=== PATIENT | female | born 1975 | race Caucasian/White ===

== ENCOUNTER → 2021-07-04 08:54 | Outpatient (CLI) | payer BC, SELFPAY ==
--- NOTE | ~2021-07-04 | MMUS_ITS ---
EXAMINATION: MM diagnostic mattie BI w shwetha, US axilla LT HISTORY: Left axillary swelling TECHNIQUE: Additional 3-D tomosynthesis images of the breasts were performed and synthetic 2-D images were generated. CAD analysis was submitted and interpreted. High resolution limited axillary ultraso und was performed. COMPARISON: 01/20/2020 BREAST PARENCHYMAL COMPOSITION: Breast composed of scattered areas of fibroglandular density FINDINGS: MAMMOGRAPHIC FINDINGS: There are no suspicious masses, calcifications or architectural distortion in either breast to sugges t malignancy. ULTRASOUND: Limited left axillary ultrasound: In the area of swelling there is a 1.9 cm lymph node with fatty hil um. No suspicious masses to suggest malignancy. IMPRESSION: 1. No evidence for malignancy in either breast. 2. Routine yearly screening mammogram and regular clinical breast examination are recommended. BI-RADS Category 2: Benign finding(s). Reviewed, dictated and finalized at location A. IMPRESSION: 1. No evidence for malignancy in either breast. 2. Routine yearly screening mammogram and regular clinical breast examination a re recommended. BI-RADS Category 2: Benign finding(s).
== END ==
PROVIDERS: PCP Internal Medicine; Visit Provider Nurse Practitioner
DX: M79.89 Other specified soft tissue disorders (principal)
CPT/HCPCS: 76882; 77062; 77066; G0279

== ENCOUNTER 2023-04-10 09:48 | Emergency (ER) | payer BC, SELFPAY ==
--- NOTE | ~2023-04-10 | CT_ITS ---
. EXAMINATION: CT abdomen pelvis w con DATE: 04/10/2023 12:44 INDICATION: Periumbilical and lower abdominal pain. History of hernia surgery. TECHNIQUE: Computed tomography (CT) of the abdomen and pelvis was performed with 100 CC Omnipaque 350 intravenous contrast. Automated exposure control and iterative reconstruction technique were employe d. Exam dose: 365.30 mGy-cm total exam DLP. COMPARISON: None. FINDINGS: Mild discoid atelectasis or scarring at the lung bases. Heart size is normal. No pericardia l or pleural effusion. Diffuse hepatic steatosis. No hepatic, splenic, pancreatic or adrenal space-occupying mass lesion. Th e gallbladder is present. No gallbladder wall thickening or pericholecystic fluid or fat stranding. N o bile duct or pancreatic duct dilatation. Approximately 2.5 mm lower pole right renal nonobstructing calculus. Several pinpoint nonobstructing lower pole left renal calculi. No ureteral calculus or hydroureteronephrosis. No renal space occupying mass lesion is detected. Normal caliber of the abdominal aorta. No intraperitoneal or retroperitoneal or pelvic mass lesion or adenopathy or ascites. The uterus, adnexal areas and urinary bladder are unremarkable. Approximately 5 cm wide area of anterior convexity of the ventral abdominal wall immediately cephalad to the small fat-containing umbilical hernia. There are transverse colon and a loop of small bowel p roject into this anterior bulging. No strangulation or obstruction. Normal appendix. Small sliding hiatal hernia. Diverticulosis of the colon; no CT evidence of diverticulitis. No bowel obstruction, bowel wall thick ening, pneumatosis or intraperitoneal free air is detected. Included skeletal structures are unremarkable. IMPRESSION: Approximately 5 cm wide anterior convexity of ventral abdominal wall immediately cephala d to small fat-containing umbilical hernia Diffuse hepatic steatosis Minimal bilateral nonobstructive nephrolithiasis Normal appendix Small sliding hernia Diverticulosis of the colon; no evidence of diverticulitis Reviewed, dictated and finalized at [facility]. Reviewed, dictated and finalized at location [facility]. STOR RELATIONS COORDINATOR IMPRESSION: Approximately 5 cm wide anterior convexity of ventral abdominal wa ll immediately cephalad to small fat-containing umbilical hernia Diffuse hepatic steatosis Minimal bilateral nonobstructive nephrolithiasis Normal appendix Small sliding hernia Diverticulosis of the colon; no evidence of diverticulitis
[2023-04-10 11:25] VITALS: BP 116/75; PULSE 72; RESP 17; TEMP 36.8; O2SAT 100
[2023-04-10 11:53] LABS: Basophils Absolute Auto 0.1 K/mm3 (0.0-0.1); Basophils Percent Auto 0.5 % (0.2-1.2); Eosinophils Absolute Auto 0.1 K/mm3 (0-0.3); Eosinophils Percent Auto 0.8 % (0-4.4); Hematocrit 44.7 % (37.0-47.0); Hemoglobin 14.4 g/dL (12.0-15.0); Immature Granulocyte Absolute 0.05 K/mm3 (0.00-0.031); Immature Granulocyte Percent A 0.5 % (0-0.5); Lymphocytes Absolute Auto 3.01 K/mm3 (0.9-3.2); Lymphocytes Percent Auto 29.5 % (18.3-44.2); Mean Corpuscular HGB Conc 32.2 g/dl (32-36); Mean Corpuscular Hemoglobin 30.6 pg (26-34); Mean Corpuscular Volume 95.1 fl (80-100); Mean Platelet Volume 10.2 fl (7.4-10.4); Monocytes Absolute Auto 0.7 K/mm3 (0.1-0.6); Monocytes Percent Auto 6.8 % (2.6-8.5); Neutrophils Absolute Auto 6.3 K/mm3 (1.3-6.7); Neutrophils Percent Auto 61.9 % (45.5-73.1); Platelet Count Result 307 k/mm3 (150-375); Red Cell Distribution Width 12.6 % (11.5-14.5); White Blood Count 10.2 K/mm3 (4.5-10.0)
[2023-04-10 11:57] LABS: Alanine Aminotransferase 47 U/L (6-35); Albumin Level 4.5 g/dL (3.5-5.1); Alkaline Phosphatase 86 U/L (38-126); Anion Gap 7 mmol/L (8-16); Aspartate Amino Transferase 46 U/L (14-36); Bilirubin,Total 0.6 mg/dL (0.2-1.3); Blood Urea Nitrogen 10 mg/dL (7-17); Calcium 9.9 mg/dL (8.4-10.2); Carbon Dioxide 28 mmol/L (22-30); Chloride 104 mmol/L (98-107); Estimated CRCL calculation 74 ml/min; Estimated Glomerular Filt Rate > 60; Glucose 99 mg/dL (65-110); Lipase 109 U/L (23-300); Potassium 4.1 mmol/L (3.4-5.0); Sodium 139 mmol/L (137-145)
[2023-04-10 12:15] LABS: Appearance Urine Clear (Clear); Bacteria Urine None Seen /hpf; Bilirubin Urine Negative (Negative); Blood Urine Negative (Negative); Color Urine Yellow (Yellow); Glucose Urine UA Negative (Negative); Ketones Urine Negative (Negative); Leukocyte Esterase Ur 1+ LEU/UL (Negative); Need Manual Microscopic Reviewed; Nitrate Urine Negative (Negative); Non Pathogenic Casts 0-2; Protein Urine Negative (Negative); Specific Grav Ur 1.011 (1.001-1.035); Squamous Epithelial Cell Urine None seen /hpf (Few); Urobilinogen Urine 0.2 mg/dL (<2.0); WBC Urine 0-5 /hpf; pH Urine 8.5 (5.0-9.0)
[2023-04-10 12:24] LABS: Add Urine Microscopic? YES
[2023-04-10] MEDS: ACETAMINOPHEN 500 MG TABLET 1000 MG PO (12:29)
--- NOTE | 2023-04-10 13:05 | ED.ABDPAIN ---
HPI - Abdominal Pain General Chief Complaint: Abdominal Pain Stated Complaint: hernia problems Time Seen by Provider: 04/10/23 10:57 Source: patient Mode of arrival: ambulatory Limitations: no limitations History of Present Illness HPI narrative: Patient is a 47 y/o female who presents to the ED with c/o periumbilical abdominal pain. Patient reports hx of umbilical hernia repair with mesh in January 2022 with a surgeon at [facility]. States over the last 1 year, she has had intermittent episodes of pain in her periumbilical region. States at times, her abdomen seems to become inflamed. She had a more severe episode of discomfort today and began feeling very ill which prompted her presentation. She has not taken anything for pain. Denies N/V, constipation, diarrhea, fevers, urinary trouble. Related Data Allergies Allergy/AdvReac Type Severity Reaction Status Date / Time aspirin Allergy Mild Hives / Verified 07/25/18 09:02 Red Face Penicillins Allergy Mild Hives / Verified 07/25/18 09:02 Red Face Review of Systems Review of Systems: CONSTITUTIONAL: Denies fever, chills, or sweats. CARDIOVASCULAR: Denies chest pain. RESPIRATORY: Denies dyspnea. GASTROINTESTINAL: See HPI. GENITOURINARY: Denies dysuria or hematuria. All systems reviewed & are unremarkable except as noted in HPI and below Exam Narrative: GENERAL: Well appearing, well-nourished, non-toxic, in no acute distress. HEAD: Normocephalic, atraumatic. RESPIRATORY: Airway patent, respirations nonlabored. Clear to auscultation bilaterally, no rales, rhonchi, wheezing. CARDIOVASCULAR: Regular rate and rhythm without murmurs, rubs, or gallops. ABDOMINAL: Soft, small umbilical hernia palpated on exam, mild tenderness to palpation diffusely throughout periumbilical region and just superior to umbilicus, nondistended. Normoactive BS. Chronic scarring to abdomen MUSCULOSKELETAL: Moves all extremities. No gross deformities. SKIN: Warm, dry, normal color. NEURO: A&O X3. Speech clear. Cranial nerves II-XII grossly intact. Steady gait. No ataxic movements. PSYCHIATRIC: Mildly anxious. Normal interaction. Course Vital Signs Vital signs: Vital Signs Temperature 98.3 F 04/10/23 11:25 Pulse Rate 72 04/10/23 11:25 Respiratory Rate 17 04/10/23 11:25 Blood Pressure 116/75 04/10/23 11:25 Pulse Oximetry 100 04/10/23 11:25 Temperature 98.4 F 04/10/23 14:14 Pulse Rate 72 04/10/23 14:14 Respiratory Rate 18 04/10/23 14:14 Blood Pressure 116/73 04/10/23 14:14 Pulse Oximetry 100 04/10/23 14:14 MDM - Abdominal Pain MDM Narrative Medical decision making narrative: Patient present ED with intermittent periumbilical abdominal pain over the last 1 year, history of umbilical hernia repair a couple of years ago. Vital signs stable upon arrival. Patient in no acute distress. Afebrile. Had not tried anything for pain prior to arrival. Given Tylenol in the ED with some improvement. Laboratory studies are unremarkable. Minimal leukocytosis 10.2. Stable H&H. Minimal transaminitis. UA without evidence for infection. CT abd/pelvis obtained and showing abnormal section/area of anterior bulging of abdominal wall just above hernia. Contains nonobstructed bowel. No obstruction and evidence of strangulation. No other significant abnormalities noted on CT scan, does show fatty liver changes. Patient updated on imaging results. She has remained stable throughout ED stay. Advised to continue tylenol/ibuprofen as needed for episodes of discomfort, also advised can place ice pack over hernia when inflamed. Recommended she have close f/u with her surgeon for further evaluation. Recommended she avoid straining/heavy lifting. Discussed signs and sx's of obstruction/strangulated hernia, reasons to return. Patient voiced understanding. D/C in stable condition. Medical Records Attestation: I reviewed the patient's medical records. Lab Data Attest
[2023-04-10 13:25] VITALS: BP 118/68; PULSE 68; RESP 15; O2SAT 100
[2023-04-10 14:14] VITALS: BP 116/73; PULSE 72; RESP 18; TEMP 36.9; O2SAT 100
== END 2023-04-10 14:15 | disposition home or self-care (01) ==
PROVIDERS: Emergency Provider Physician Assistant; PCP Internal Medicine
DX: R10.33 Periumbilical pain (principal); K42.9 Umbilical hernia without obstruction or gangrene
CPT/HCPCS: 36415; 74177; 80053; 81001; 81025; 83690; 85025; 99284; A9270; Q9967

== ENCOUNTER 2023-11-12 08:51 | Outpatient (CLI) | payer BC, SELFPAY ==
--- NOTE | ~2023-11-12 | DEXA_ITS ---
Bone Density Report Name: DARREN GUERRA Age: 48 Sex: Female Ethnicity: White Date of : 1975 Indication: postmenopausal; Referring Provider: TAMIR, LACY Study: Bone densitometry was performed. Exam Date: November 12, 2023 Accession number: [id number] Bone Density: Region BMD T-score Z-score Classification AP Spine(L1-L4) 0.976 -0.6 0.0 Normal Femoral Neck (Left) 0.661 -1.7 -1.1 Osteopenia Total Hip (Left) 0.874 -0.6 -0.2 Normal Femoral Neck (Right) 0.685 -1.5 -0.8 Osteopenia Total Hip (Right) 0.878 -0.5 -0.1 Normal Total Hip Mean 0.876 -0.6 -0.2 Normal World Health Organization criteria for BMD impression classify patients as: Normal (T-score at or above -1.0), Osteopenia (T-score between -1.0 and -2.5), or Osteoporosis (T-score at or below -2.5). 10-year Fracture Risk(1): Major Osteoporotic Fracture 4.3% Hip Fracture 0.4% Reported Risk Factors: [place] (), Neck BMD=0.661, BMI=26.0 (1) FRAX(R) Version 3.08. Fracture probability calculated for an untreated patient. Fracture probability may be lower if the patient has received treatment. Clinical Information Provided by Patient: Has used the following medications: Vitamin D, Calcium Patient maximum height was 64.0 Does not regularly consume dairy products Onset of menses at age 13 Number of children 2 Impression: The patient has low bone mass, based on the Left Femoral Neck T-score. The patient has an estimated ten-year risk of hip fracture of 0.4% and an estimated ten-year risk of major fracture of 4.3%, based on the WHO FRAX algorithm. Discussion: BONE DENSITY IS LOW AT ONE OR MORE SKELETAL SITES. This patient's lowest T-score is low at one or more skeletal sites. It meets the World Health Organization's (WHO) criteria for ?low bone mass? (T-score between -1.0 and -2.5). The patient's 10-year risk of fracture as calculated by FRAX is less than the threshold where pharmacological therapy is recommended by the National Osteoporosis Foundation (NOF). However, all treatment decisions require clinical judgment and consideration of individual patient factors, including patient preferences, comorbidities, previous drug use, risk factors not captured in the FRAX model (e.g., frailty, falls, vitamin D deficiency, increased bone turnover, interval significant decline in bone density) and possible under or overestimation of fracture risk by FRAX. The patient should follow a healthful lifestyle (good nutrition with adequate calcium and vitamin D, and appropriate weight-bearing exercise). Follow-Up: Consider repeating this study in 2 to 3 years to reassess this patient's status, or sooner if there is some new clinical indication. Reported by: TOI on 11/12/2023 9:23:00 AM.
== END 2023-11-12 08:52 | disposition home or self-care (01) ==
PROVIDERS: PCP Internal Medicine; Visit Provider Nurse Practitioner Women's Health
DX: Z78.0 Asymptomatic menopausal state (principal); M85.852 Other specified disorders of bone density and structure, left thigh; M85.851 Other specified disorders of bone density and structure, right thigh
CPT/HCPCS: 77080

== ENCOUNTER 2024-02-08 01:41 | Day surgery (SDC) | payer BC, SELFPAY ==
[2024-01-30 14:25] VITALS: BMI 26.6
[2024-02-08 08:40] VITALS: BP 112/59; PULSE 66; RESP 16; TEMP 36.1; O2SAT 100
[2024-02-08 08:47] LABS: BEDSIDEPREGUCG Negative (Negative)
[2024-02-08] MEDS: LACTATED RINGERS 1,000 ML 150 ML IV CONT (08:49)
--- NOTE | 2024-02-08 09:06 | P.PNAN_ITS ---
Anes - Initial Pre Proc Eval Procedure: Operation Date: 02/08/24 10:00 Proposed Procedures p Screening Colonoscopy - Timi Cowart MD Date/Time: 02/08/24 09:06 Surgeon: Timi Cowart MD Pre Op Diagnosis: Neoplasm Screening Patient Data Age: 48 Gender: F Height: 1.63 m Weight: 68.7 kg Last Vital Signs Temp 36.1 C L 02/08/24 08:40 Pulse 66 02/08/24 08:40 Resp 16 02/08/24 08:40 BP 112/59 L 02/08/24 08:40 Pulse Ox 100 02/08/24 08:40 O2 Del Method Room Air 02/08/24 08:40 Allergies Allergy/AdvReac Type Severity Reaction Status Date / Time aspirin Allergy Mild Hives / Verified 02/08/24 08:38 Red Face Penicillins Allergy Mild Hives / Verified 02/08/24 08:38 Red Face latex Allergy Rash Verified 02/08/24 08:38 tramadol AdvReac Blurry Verified 02/08/24 08:38 Vision Home Medications ?Medication ?Instructions ?Recorded ?Confirmed ?Type buspirone 5 mg tablet 5 mg PO BID 01/30/24 02/08/24 History magnesium glycinate 100 mg (as 250 mg PO DAILY 01/30/24 02/08/24 History glycinate) tablet metoprolol tartrate 25 mg tablet 25 mg PO BID 01/30/24 02/08/24 History Laboratory Tests 02/08/24 08:40 POC Urine HCG, Qual Negative (Negative) Patient hx anesthesia problems: none Family hx anesthesia problems: none Results Review: All pre-operative results and documents have been reviewed as part of the pre- operative evaluation. [facility] Past Medical History Medical History (Updated 02/08/24 @ 09:07 by Percy Barry MD) Anxiety Tachycardia Social History Social History Smoking status: Never smoker Substance use type: does not use Living arrangements: with family Spiritual care concerns: No Anes - Eval Final PreProcedure Day of Procedure 02/08/24 09:06 Patient weight: overweight Heart: regular rate and rhythm Lungs: clear to auscultation Airway: Mallampati scale class II Neurological: alert and oriented Last oral intake: >/= 8 hours ASA classification: II Emergent: no Anesthetic plan: proceed Anesthesia type and monitoring: general GIVS and standard monitoring Results Review: All pre-operative results and documents have been reviewed as part of the pre- operative evaluation. Informed Consent: The patient's anesthetic plan and its attendant risks and benefits were discussed with the patient/family/POA. Questions were solicited and answers provided to the satisfaction of the patient/family/POA.
--- NOTE | 2024-02-08 09:10 | PM.HPGS ---
History of Present Illness History of Present Illness Consent: Risks, benefits, and alternatives have been discussed and questions answered. Patient agrees to proceed with procedure. Chief complaint: Neoplasm Screening Narrative: Deonna Modi is a 48 year old female here for first screening colonoscopy Review of Systems Review of Systems: All systems reviewed & are unremarkable except as noted in HPI and below PMFSH Past Medical History Medical History (Updated 02/08/24 @ 09:20 by Timi Cowart MD) Colon cancer screening Anxiety Tachycardia Social History Social History Smoking status: Never smoker Substance use type: does not use Living arrangements: with family Spiritual care concerns: No Meds Home Medications and Allergies Home Medications ?Medication ?Instructions ?Recorded ?Confirmed ?Type buspirone 5 mg tablet 5 mg PO BID 01/30/24 02/08/24 History magnesium glycinate 100 mg (as 250 mg PO DAILY 01/30/24 02/08/24 History glycinate) tablet metoprolol tartrate 25 mg tablet 25 mg PO BID 01/30/24 02/08/24 History Allergies Allergy/AdvReac Type Severity Reaction Status Date / Time aspirin Allergy Mild Hives / Verified 02/08/24 08:38 Red Face Penicillins Allergy Mild Hives / Verified 02/08/24 08:38 Red Face latex Allergy Rash Verified 02/08/24 08:38 tramadol AdvReac Blurry Verified 02/08/24 08:38 Vision Vital Signs Vital Signs - 24 hr 02/08/24 08:40 Temperature 97.0 F L Pulse Rate 66 Respiratory Rate 16 Blood Pressure 112/59 L Pulse Oximetry 100 Oxygen Delivery Room Air Exam Const: General: comfortable and no acute distress HENMT: Face/Nose/Sinus: Normal nares present Eyes: General: appearance normal, both eyes and all related structures Neck: Neck: no JVD Resp: Auscultation: clear to auscultation bilaterally Cardio: Rate: regular rate Rhythm: regular rhythm GI: Inspection: non-distended GI Palp: Yes Soft to palpation Skin: General skin exam: normal color Neuro: General: gait normal Speech: normal speech Extrem: General: normal to inspection Psych: Mental Status: mental status grossly normal Assessment and Plan Assessment and plan (1) Colon cancer screening: Code(s): Z12.11 - Encounter for screening for malignant neoplasm of colon Status: Acute Assessment and Plan: colonoscopy
[2024-02-08 09:20] VITALS: BP 97/51; PULSE 69; RESP 16; O2SAT 95
[2024-02-08 09:30] VITALS: BP 96/44; PULSE 64; RESP 15; O2SAT 98
[2024-02-08 09:40] VITALS: BP 101/52; PULSE 65; RESP 16; O2SAT 96
== END 2024-02-08 09:56 | disposition home or self-care (01) ==
PROVIDERS: Anesthesiology; PCP Internal Medicine; Referring Provider Obstetrics & Gynecology Gynecology; Visit Provider Internal Medicine Gastroenterology
PROC: 0DJD8ZZ Inspection of Lower Intestinal Tract, Via Natural or Artificial Opening Endoscopic (ICD-10-PCS; CPT 45378; principal; 2024-02-08 10:00)
DX: Z12.11 Encounter for screening for malignant neoplasm of colon (principal); K64.8 Other hemorrhoids; K57.30 Diverticulosis of large intestine without perforation or abscess without bleeding; F41.9 Anxiety disorder, unspecified; R00.0 Tachycardia, unspecified
CPT/HCPCS: 45378; J2704; J7120

== ENCOUNTER 2024-03-12 14:49 | Outpatient (CLI) | payer BC, SELFPAY ==
--- NOTE | ~2024-03-12 | MM_ITS ---
EXAMINATION: MM screening mattie BI w shwetha HISTORY: Screening mammogram TECHNIQUE: Craniocaudal and mediolateral oblique 3-D tomosynthesis images were obtained and synthetic 2-D images were generated. CAD analysis was submitted and interpreted. COMPARISON: 07/04/2021, 01/20/2020 BREAST PARENCHYMAL COMPOSITION:Not Dense. The breasts are almost entirely fatty FINDINGS: No suspicious mass, calcification, or architectural distortion are identified in either arron ast to suggest malignancy. There has been no suspicious interval change. IMPRESSION: No mammographic evidence of malignancy. Recommend routine screening mammography in one year. BI-RADS Category 1: Negative Reviewed, dictated and finalized at location . NE INSULATOR
== END 2024-03-12 14:50 | disposition home or self-care (01) ==
LOC: ANHIMG 14:53
PROVIDERS: PCP Internal Medicine; Visit Provider Nurse Practitioner Women's Health
DX: Z12.31 Encounter for screening mammogram for malignant neoplasm of breast (principal)
CPT/HCPCS: 77063; 77067